=== PATIENT | female | born 1960 | race Caucasian/White ===

== ENCOUNTER 2016-10-30 06:28 | Emergency (ER) | payer OTHER ==
[~2016-10-30] VITALS: Ht 165.1 cm; Wt 73.9 kg
[~2016-10-30 06:28] MED LIST: AMOX TR-K CLV1 EAC4 PO; ATORVASTATIN CA20 MG PO; CIPRO500 MG PO; CIPROFLOXACIN500 M1 PO; ESTRADIOL1 EA11 TD; FLAGYL500 MG PO; METHYLPHENIDATE54 MG PO; METRONIDAZOLE500 MG PO; PERCOCET 5/31 TABLET PO; PROBIOTIC1 EAC2 PO; PROMETHAZINE HC25 M1 PO; TYLENOL EXTRA500 MG PO; VIVELLE-DOT0.1 MG TD; ZOFRAN4 MG PO
[2016-10-30 06:59] LABS: HEMATOCRIT 38.7 % (36.0-46.0); MCH 28.2 PG (29.0-34.0); MCHC 32.3 G/DL (30.0-36.0); MCV 87.2 FL (83-99); MEAN PLAT.VOLUME 10.3 uM^3 (9.5-12.4); PLATELET COUNT 231 K/uL (156-360); RBC DIS.WIDTH-CV 12.9 % (11.8-14.6); RBC DIS.WIDTH-SD 41.5 % (39-53); RED BLOOD COUNT 4.44 M/uL (3.80-5.20); WHITE BLOOD COUNT 6.5 K/uL (4.1-10.2)
[2016-10-30 07:41] LABS: ANION GAP 8 MEQ/L (2-14); CHLORIDE 105 MEQ/L (99-109); POTASSIUM 3.8 MEQ/L (3.7-5.4); SAMPLE HEMOLYSIS CHECK 0; SAMPLE ICTERIC CHECK 0; SAMPLE LIPEMIA CHECK 0; SODIUM 139 MEQ/L (136-147)
[2016-10-30 07:47] LABS: GFR ESTIMATE (CALCULATED) > 59 mL/min/; GLUCOSE 128 mg/dL (70-99); UREA NITROGEN (BUN) 11 mg/dL (9-23)
[2016-10-30 07:51] LABS: TROP-I INTERPRETATION NEGATIVE; TROPONIN-I < 0.01 ng/mL (0.0-0.30)
[2016-10-30 10:23] VITALS: BP 121/73
== END 2016-10-30 10:28 | disposition home or self-care (01) ==
LOC: EME 06:28
DX: R20.2 Paresthesia of skin (principal); E78.5 Hyperlipidemia, unspecified; Z87.442 Personal history of urinary calculi
CPT/HCPCS: 70450; 71020; 80048; 84484; 85027; 93005; 93971; 99281; 99284

== ENCOUNTER → 2017-01-13 | Outpatient (CLI) | payer OTHER | END | disposition home or self-care (01) | LOC: CDC 15:30 | DX: R94.31 Abnormal electrocardiogram [ECG] [EKG] (principal); S83.231D Complex tear of medial meniscus, current injury, right knee, subsequent encounter; M17.11 Unilateral primary osteoarthritis, right knee | CPT/HCPCS: 93000 ==

== ENCOUNTER 2017-06-23 09:32 | Emergency (ER) | payer OTHER ==
[~2017-06-23] VITALS: Ht 162.6 cm; Wt 73.0 kg
[2017-06-23 10:27] LABS: HEMATOCRIT 41.2 % (36.0-46.0); MCH 27.9 PG (29.0-34.0); MCV 87.1 FL (83-99); MEAN PLAT.VOLUME 9.8 uM^3 (9.5-12.4); PLATELET COUNT 242 K/uL (156-360); RBC DIS.WIDTH-CV 13.2 % (11.8-14.6); RBC DIS.WIDTH-SD 41.9 % (39-53); RED BLOOD COUNT 4.73 M/uL (3.80-5.20); WHITE BLOOD COUNT 5.5 K/uL (4.1-10.2)
[2017-06-23 10:45] LABS: CHLORIDE 107 mEq/L (99-109); POTASSIUM 4.6 mEq/L (3.7-5.4); SODIUM 139 mEq/L (136-147)
[2017-06-23 10:47] LABS: GLUCOSE 110 mg/dL (70-99)
[2017-06-23 10:48] LABS: ANION GAP 7 MEQ/L (2-14)
[2017-06-23 10:49] LABS: TOTAL BILIRUBIN 0.4 mg/dL (0.0-1.0)
[2017-06-23 10:50] LABS: ALKALINE PHOSPHATASE 93 IU/L (3-129)
[2017-06-23 10:51] LABS: GFR ESTIMATE (CALCULATED) 54 mL/min/
[2017-06-23 10:52] LABS: UREA NITROGEN (BUN) 18 mg/dL (9-23)
[2017-06-23 10:54] LABS: LIPASE 33 U/L (1.0-51.0)
[2017-06-23 11:44] LABS: ADD MIUA? NO; BILIRUBIN NEGATIVE; BLOOD NEGATIVE; COLOR YELLOW ((YELLOW)); GLUCOSE (STRIP) NEGATIVE; KETONES NEGATIVE; LEUKOCYTES NEGATIVE; NITRITE NEGATIVE; PROTEIN (STRIP) NEGATIVE; SPECIFIC GRAVITY 1.017 (1.000-1.030); UCUL ADDED? NO; UROBILINOGEN 0.2 MG/DL (0.2-1.0)
[2017-06-23] MEDS ORDERED: AUGMENTIN875 MG PO (13:41)
[2017-06-23] MEDS ORDERED: NORCO 5/3251 TABLET PO (13:56)
[2017-06-23 14:00] VITALS: BP 110/59
== END 2017-06-23 14:01 | disposition home or self-care (01) ==
LOC: EME 09:32
DX: K57.32 Diverticulitis of large intestine without perforation or abscess without bleeding (principal); E78.5 Hyperlipidemia, unspecified; F41.9 Anxiety disorder, unspecified; Z87.442 Personal history of urinary calculi; Z90.710 Acquired absence of both cervix and uterus; Z88.5 Allergy status to narcotic agent; Z88.1 Allergy status to other antibiotic agents
CPT/HCPCS: 74177; 80053; 81003; 83690; 85027; 99281; 99285; J2405; J3010; J7030